=== PATIENT | female | born 1960 | race Caucasian/White ===

== ENCOUNTER 2020-01-28 13:08 | Emergency (ER) | payer OTHER, SELFPAY ==
[~2020-01-28] VITALS: Ht 160 cm; Wt 65.8 kg
[2020-01-28 13:11] VITALS: BP 131/91; Ht 160 cm; Wt 65.8 kg
== END 2020-01-28 14:25 | disposition home or self-care (01) ==
LOC: ED 13:08
DX: U07.1 COVID-19 (principal); Z90.710 Acquired absence of both cervix and uterus; Z98.890 Other specified postprocedural states
CPT/HCPCS: U0003